=== PATIENT | male | born 1970 | race Two or more races ===

== ENCOUNTER 2017-11-25 00:13 | Emergency (ER) | payer SELFPAY ==
[2017-11-25 00:25] VITALS: RESP 16; O2SAT 96
--- NOTE | 2017-11-25 05:26 | ED PDOC ---
HPI: Psych/Substance Abuse Time Seen by Provider: 11/25/17 00:47 Chief Complaint (Nursing): Alcohol Ingestion Chief Complaint (Provider): Denies complaint History Per: Patient History/Exam Limitations: no limitations Onset/Duration Of Symptoms: Hrs Current Symptoms Are (Timing): Still Present Additional Complaint(s): 47 yo male with no medical problems presents after drinking. PT denies fever/ chills. Pt reports drinking today. Pt was brought by EMS for evaluation. Pt falls asleep in Er. Past Medical History Reviewed: Historical Data, Nursing Documentation, Vital Signs Vital Signs: Last Vital Signs Temp 98.3 F 11/25/17 00:22 Pulse 106 H 11/25/17 00:22 Resp 16 11/25/17 00:22 BP 130/90 11/25/17 00:22 Pulse Ox 96 11/25/17 00:22 - Medical History PMH: No Chronic Diseases - Surgical History Surgical History: No Surg Hx - Family History Family History: States: No Known Family Hx - Living Arrangements Living Arrangements: With Family - Social History Current smoker - smoking cessation education provided: No Alcohol: Occasional Drugs: Denies - Allergies Allergies/Adverse Reactions: Allergies Allergy/AdvReac Type Severity Reaction Status Date / Time No Known Allergies Allergy Verified 11/25/17 00:25 Review of Systems ROS Statement: Except As Marked, All Systems Reviewed And Found Negative Constitutional: Negative for: Fever, Chills Cardiovascular: Negative for: Chest Pain Respiratory: Negative for: Cough Gastrointestinal: Negative for: Nausea, Vomiting, Abdominal Pain, Diarrhea Genitourinary Male: Negative for: Dysuria Psych: Negative for: Depression, Suicidal ideation Physical Exam - Reviewed Nursing Documentation Reviewed: Yes Vital Signs Reviewed: Yes - Physical Exam Appears: Positive for: Well, Non-toxic, No Acute Distress Head Exam: Positive for: ATRAUMATIC, NORMAL INSPECTION, NORMOCEPHALIC Skin: Positive for: Normal Color, Warm, DRY Eye Exam: Positive for: Normal appearance ENT: Positive for: Normal ENT Inspection Neck: Positive for: Normal, Painless ROM Cardiovascular/Chest: Positive for: Regular Rate, Rhythm Respiratory: Positive for: CNT, Normal Breath Sounds Gastrointestinal/Abdominal: Positive for: Normal Exam, Soft Back: Positive for: Normal Inspection Extremity: Positive for: Normal ROM Neurologic/Psych: Positive for: Alert, Oriented - ECG O2 Sat by Pulse Oximetry: 96 Medical Decision Making Medical Decision Making: Pt sleeping in ER. Calm and cooperative during visit. 1730 - Pt wakes up and continues to have no complaints. Disposition - Clinical Impression Clinical Impression: Alcohol abuse Counseled Patient/Family Regarding: Diagnosis, Need For Followup - Disposition Disposition: Routine/Home Disposition Time: 05:35 Condition: STABLE Instructions: Effects of Alcohol on Your Health
[2017-11-25 05:46] VITALS: BP 124/86; PULSE 94; TEMP 97.6
== END 2017-11-25 05:30 | disposition home or self-care (01) ==
LOC: H.ER 00:13
DX: F10.10 Alcohol abuse, uncomplicated (principal)